=== PATIENT | male | born 1995 | race Caucasian/White ===

== ENCOUNTER 2021-11-16 10:38 | Emergency (ER) | payer OTHER ==
[2021-11-16 10:58] VITALS: RESP 18; TEMP 97.7
--- NOTE | 2021-11-16 11:56 | XR ---
EXAMINATION TYPE: XR chest 2V DATE OF EXAM: 11/16/2021 COMPARISON: NONE TECHNIQUE: PA and lateral views submitted. HISTORY: Cough FINDINGS: The lungs are clear and there is no pneumothorax, pleural effusion, or focal pneumonia. Heart size normal. No overt failure. IMPRESSION: 1. No acute process.
--- NOTE | 2021-11-16 12:38 | ED ---
General Adult HPI - General Chief complaint: Upper Respiratory Infection Stated complaint: chest congestion Time Seen by Provider: 11/16/21 12:08 Source: patient Mode of arrival: ambulatory Limitations: no limitations - History of Present Illness Initial comments: 26-year-old male presents to the emergency room for a chief complaint of cough. Patient has had a cough for about 2 weeks. He states it initially started and then improved but then came back and worsened. He has not had fevers. Minimal shortness of breath. He is congested as well and has had mild headaches.Patient has no other complaints at this time including shortness of breath, chest pain, abdominal pain, nausea or vomiting, or visual changes. - Related Data Previous Rx's Medication Instructions Recorded Azithromycin [Zithromax Z-pack (6 250 mg PO DIRECTED #6 tab 11/16/21 tabs)] Benzonatate [Tessalon Perles] 200 mg PO Q8H PRN #15 capsule 11/16/21 guaiFENesin [Mucinex] 600 mg PO Q12HR PRN #20 tab 11/16/21 Allergies Allergy/AdvReac Type Severity Reaction Status Date / Time No Known Allergies Allergy Verified 11/16/21 10:53 Review of Systems ROS Statement: Those systems with pertinent positive or pertinent negative responses have been documented in the HPI. ROS Other: All systems not noted in ROS Statement are negative. Past Medical History Past Medical History: No Reported History Past Surgical History: No Surgical Hx Reported Past Psychological History: No Psychological Hx Reported Smoking Status: Current every day smoker Past Alcohol Use History: None Reported Past Drug Use History: None Reported General Exam Limitations: no limitations General appearance: alert, in no apparent distress Head exam: Present: atraumatic Eye exam: Present: normal appearance, PERRL, EOMI. Absent: scleral icterus, conjunctival injection ENT exam: Present: normal exam, mucous membranes moist Neck exam: Present: normal inspection, full ROM. Absent: tenderness Respiratory exam: Present: normal lung sounds bilaterally. Absent: respiratory distress, wheezes Cardiovascular Exam: Present: regular rate, normal rhythm, normal heart sounds GI/Abdominal exam: Present: soft, normal bowel sounds. Absent: distended, tenderness Neurological exam: Present: alert Course Vital Signs 11/16/21 10:53 Temperature 97.7 F Pulse Rate 97 Respiratory 18 Rate Blood Pressure 118/63 O2 Sat by Pulse 98 Oximetry Medical Decision Making - Medical Decision Making Vitals are stable. Patient is well-appearing. Patient with the negative for COVID-19 a chest x-ray did not show pneumonia. However given symptoms improved and then worsened again we will cover for possible developing pneumonia. He will follow-up with his doctor. He will return here for any worsening symptoms. - Lab Data Lab Results 11/16/21 Range/Units 11:02 Coronavirus (PCR) Not Detected (Not Detectd) Disposition Clinical Impression: Cough Disposition: HOME SELF-CARE Condition: Good Instructions (If sedation given, give patient instructions): Upper Respiratory Infection (ED) Additional Instructions: Please follow-up with your doctor in one to 2 days. Return to the emergency room for any worsening symptoms. Prescriptions: guaiFENesin [Mucinex] 600 mg PO Q12HR PRN #20 tab PRN Reason: Congestion Benzonatate [Tessalon Perles] 200 mg PO Q8H PRN #15 capsule PRN Reason: Cough Azithromycin [Zithromax Z-pack (6 tabs)] 250 mg PO DIRECTED #6 tab Is patient prescribed a controlled substance at d/c from ED?: No Referrals: Nonstaff,Physician [Primary Care Provider] - 1-2 days Time of Disposition: 12:38
[2021-11-16] MEDS ORDERED: AZITHROMYCIN 500 MG TAB PO STA (12:43)
[2021-11-16 12:54] VITALS: BP 120/66; PULSE 90
== END 2021-11-16 12:55 | disposition home or self-care (01) ==
LOC: EC 10:38
DX: R05.9 Cough, unspecified (principal); R09.89 Other specified symptoms and signs involving the circulatory and respiratory systems; R51.9 Headache, unspecified; F17.200 Nicotine dependence, unspecified, uncomplicated; Z20.822 Contact with and (suspected) exposure to COVID-19
CPT/HCPCS: 71046; 87635; 99284

== ENCOUNTER 2021-11-24 22:31 | Inpatient (IN) | payer MEDICAID, OTHER ==
[2021-11-25] MEDS ORDERED: LORazepam 1 MG TAB PO STA (00:17)
[2021-11-25] MEDS ORDERED: QUEtiapine 100 MG TAB PO STA (01:14)
--- NOTE | 2021-11-25 01:14 | ED ---
Psych HPI - General Chief Complaint: Psychiatric Symptoms Stated Complaint: psych eval Time Seen by Provider: 11/24/21 23:28 Source: patient, RN notes reviewed Mode of arrival: ambulatory - History of Present Illness Initial Comments: Patient is a 26-year-old male that presents to the emergency department complaining of paranoia. Patient notes that he believes people are following him trying to kill him. He notes that people keep sneezing and a whistling around which he thinks is assigned at daycare after him. Patient notes that he does not take his medications as intended or prescribed. Patient notes he missed his last scheduled follow-up with his outpatient therapist. Patient notes that he also thinks that people are trying to kill the cars. Patient denied any chest pain shortness of breath headache nausea vomiting diarrhea constipation fever fatigue chills. - Related Data Previous Rx's Medication Instructions Recorded Azithromycin [Zithromax Z-pack (6 250 mg PO DIRECTED #6 tab 11/16/21 tabs)] Benzonatate [Tessalon Perles] 200 mg PO Q8H PRN #15 capsule 11/16/21 guaiFENesin [Mucinex] 600 mg PO Q12HR PRN #20 tab 11/16/21 Allergies Allergy/AdvReac Type Severity Reaction Status Date / Time No Known Allergies Allergy Verified 11/24/21 23:26 Review of Systems ROS Statement: Those systems with pertinent positive or pertinent negative responses have been documented in the HPI. ROS Other: All systems not noted in ROS Statement are negative. Past Medical History Past Medical History: No Reported History History of Any Multi-Drug Resistant Organisms: None Reported Past Surgical History: No Surgical Hx Reported Past Psychological History: Bipolar, Schizophrenia Smoking Status: Current every day smoker Past Alcohol Use History: None Reported Past Drug Use History: None Reported General Exam General appearance: alert, in no apparent distress Head exam: Present: atraumatic, normocephalic, normal inspection Eye exam: Present: normal appearance, PERRL, EOMI. Absent: scleral icterus, conjunctival injection, periorbital swelling ENT exam: Present: normal exam, mucous membranes moist Neck exam: Present: normal inspection Respiratory exam: Present: normal lung sounds bilaterally. Absent: respiratory distress, wheezes, rales, rhonchi, stridor Cardiovascular Exam: Present: regular rate, normal rhythm, normal heart sounds. Absent: systolic murmur, diastolic murmur, rubs, gallop, clicks Extremities exam: Present: normal inspection, full ROM, normal capillary refill. Absent: tenderness, pedal edema, joint swelling, calf tenderness Neurological exam: Present: alert, oriented X3 Psychiatric exam: Present: normal mood, flat affect. Absent: homicidal ideation, suicidal ideation Skin exam: Present: warm, dry, intact, normal color. Absent: rash Course Vital Signs 11/24/21 23:22 Temperature 97.1 F L Pulse Rate 107 H Respiratory 18 Rate Blood Pressure 159/77 O2 Sat by Pulse 97 Oximetry Medical Decision Making - Medical Decision Making 26-year-old male complaining of paranoia and delusions. Urine drug screen and alcohol breath test ordered. Patient is cleared for EPS evaluation, EPS notified. EPS of a wood patient and recommended 100 mg of Seroquel for the night. He also stated that patient will be admitted. Case discussed with Dr. Beltrán Disposition Clinical Impression: Psychosis, Paranoia Disposition: ADMITTED IP TO THIS HOSP Condition: Stable Is patient prescribed a controlled substance at d/c from ED?: No Referrals: None,Stated [Primary Care Provider] - 1-2 days Time of Disposition: 01:16
[2021-11-25 02:26] LABS: Amphetamine Screen,Urine Detected (NotDetected); Barbiturate Screen,Urine Not Detected (NotDetected); Benzodiazepines Screen,Urine Not Detected (NotDetected); Cocaine Screen,Urine Detected (NotDetected); Methadone Screen, Urine Not Detected (NotDetected); Opiate Screen,Urine Not Detected (NotDetected); Oxycodone Screen, Urine Not Detected (NotDetected); Phencyclidine Screen,Urine Not Detected (NotDetected); Tricyclic Antidepressant,Urine Detected (NotDetected); Urn Cannabinoid Scrn Not Detected (NotDetected)
--- NOTE | 2021-11-25 03:36 | P.PN ---
Progress Note - Text Progress Note Date: 11/25/21 notified of new consult , patient currently sleeping
--- NOTE | 2021-11-25 09:45 | P.HP ---
Psychiatric H&P - . H&P Date: 11/25/21 History & Physical: Allergies Allergy/AdvReac Type Severity Reaction Status Date / Time No Known Allergies Allergy Verified 11/24/21 23:26 Vital Signs Temp 98.7 F 11/25/21 03:11 Pulse 112 H 11/25/21 03:11 Resp 18 11/25/21 03:11 BP 111/67 11/25/21 03:11 Pulse Ox 95 11/25/21 03:11 Intake & Output 11/24/21 11/25/21 11/25/21 18:59 06:59 18:59 Weight 81.647 kg Laboratory Last Values Urine Opiates Screen Not Detected (NotDetected) 11/25/21 01:00 Ur Oxycodone Screen Not Detected (NotDetected) 11/25/21 01:00 Urine Methadone Screen Not Detected (NotDetected) 11/25/21 01:00 Ur Propoxyphene Screen Not Detected (NotDetected) 11/25/21 01:00 Ur Barbiturates Screen Not Detected (NotDetected) 11/25/21 01:00 U Tricyclic Antidepress Detected (NotDetected) H 11/25/21 01:00 Ur Phencyclidine Scrn Not Detected (NotDetected) 11/25/21 01:00 Ur Amphetamines Screen Detected (NotDetected) H 11/25/21 01:00 U Methamphetamines Scrn Detected (NotDetected) H 11/25/21 01:00 U Benzodiazepines Scrn Not Detected (NotDetected) 11/25/21 01:00 Urine Cocaine Screen Detected (NotDetected) H 11/25/21 01:00 U Marijuana (THC) Screen Not Detected (NotDetected) 11/25/21 01:00 Coronavirus (PCR) Not Detected (Not Detectd) 11/25/21 01:37 11/25/21 09:32 History of present illness: Buck Nazario is a 26-year-old male who presents to the ER stating that he was feeling very paranoid Patient had admitted to people trying to get him Patient also expressed some bizarre thoughts and looseness of associations like they should be getting rid of the cars and that the cars out to get them When seen today patient reports that he was having auditory and visual hallu cinations He states that the voices were bothering him and that they were overwhelming He admits to using drugs and alcohol He currently admits to using heroin cocaine and methamphetamine He states that he was on Seroquel in the past but has not been taking them He says that he is taking 100 mg at night Patient denies that he has had any adequate follow-up with the psychiatry in a long time Past history personal and social history Patient remains uninterested Patient turned around and went back to sleep and did not want to answer any further questions after some initial information as given above Patient admits that he has been homeless and has been staying at different places He also admits that he has been hospitalized several times in the past Patient denies that he has any suicidal or homicidal ideations or plans Substance abuse history: Patient admits to using heroin cocaine and methamphetamine on a regular basis Patient's current drug screen was positive for cocaine use and methamphetamine use Patient also tested positive for tricyclic antidepressant which may be a possible cross reaction with opiates Mental status examination: Reveals a young male who looks much older for his age Patient is easily arousable but not interested in this interview and wants to sleep and may be related to his recent substance use withdrawal symptoms with fatigue Affect remains flat Speech was clear, coherent and relevant Patient admits intermittent auditory and visual hallucinations but denies any command hallucinations Patient denies any suicidal or homicidal ideations Thinking is impoverished Formal and operational judgment are impaired Insight into his problem remains impaired Problem-solving ability is concrete Diagnostic impression: Adjustment disorder with mixed emotional features Psychotic disorder acute possibly drug related Polysubstance use disorder Cannabis use disorder unspecified Alcohol use disorder unspecified Methamphetamine use disorder unspecified "Opiate use disorder unspecified Cocaine use disorder unspecified Plan: 1 Patient is an appropriate candidate for inpatient psychiatric hospitalization and treatment 2 patient is only agreed to be restarted on Seroquel 100 mg at bedtime 3 patient's psychotic symptoms may be related to his substance use and further progress will depend on the clearing of the above drug related symptoms and reassessment for any other underlying mental disorder 4 patient will also parts been on the sethi activities and milieu treatment 5 approximate length of stay would be 3-5 days [facility]
[2021-11-25] MEDS ORDERED: LORazepam 2 MG/ML INJ IM PRN (20:32)
[2021-11-25] MEDS ORDERED: MAG HYDROX/AL HYDROX/SIMETH 30 ML CUP PO PRN (20:36)
[2021-11-25] MEDS ORDERED: MAGNESIUM HYDROXIDE 2,400 MG/10 ML CUP PO PRN (20:36)
[2021-11-25] MEDS: LORazepam 1 MG TAB PO PRN (20:50)
[2021-11-26] MEDS: NICOTINE 14MG/24HR PATCH TRANSDERM SCH (07:56)
[2021-11-26] MEDS: ACETAMINOPHEN TAB 325 MG TAB PO PRN ×2 (07:58→16:57)
[2021-11-26 08:31] LABS: Basophils % (A) 1 %; Eosinophils # (A) 0.2 k/uL (0-0.7); Eosinophils % (A) 3 %; HCT 44.4 % (39.0-53.0); HGB 14.5 gm/dL (13.0-17.5); Lymphocytes # (A) 1.6 k/uL (1.0-4.8); Lymphocytes % (A) 32 %; MCH 31.8 pg (25.0-35.0); MCHC 32.5 g/dL (31.0-37.0); MCV 97.6 fL (80.0-100.0); Mean Platelet Volume 7.4; Monocytes # (A) 0.4 k/uL (0-1.0); Monocytes % (A) 7 %; Neutrophils # (A) 2.7 k/uL (1.3-7.7); Neutrophils % (A) 54 %; Platelet Count 212 k/uL (150-450); RBC 4.55 m/uL (4.30-5.90); RDW 12.8 % (11.5-15.5); WBC 5.1 k/uL (3.8-10.6)
[2021-11-26 08:44] LABS: ALT 194 U/L (4-49); AST 142 U/L (17-59); African American GFR (CKD) >90 (>60 ml/min/1.73 sqM); Albumin 3.7 g/dL (3.5-5.0); Alkaline Phosphatase 58 U/L (38-126); Anion Gap 4 mmol/L; Blood Urea Nitrogen 18 mg/dL (9-20); Calcium 8.9 mg/dL (8.4-10.2); Carbon Dioxide 24 mmol/L (22-30); Chloride 110 mmol/L (98-107); Glucose 106 mg/dL (74-99); Non-African American GFR(CKD) >90 (>60 ml/min/1.73 sqM); Potassium 4.4 mmol/L (3.5-5.1); Sodium 138 mmol/L (137-145); Total Bilirubin 0.6 mg/dL (0.2-1.3); Total Protein 6.6 g/dL (6.3-8.2)
[2021-11-26] MEDS: LORazepam 1 MG TAB PO PRN (09:06)
--- NOTE | 2021-11-26 10:17 | P.PN ---
Progress Note - Text Progress Note Date: 11/26/21 Interval History: Patient was seen wandering the hallways and was directable and agreeable to speak with feature writer in the office. The patient is reporting that he is feeling well. He is currently not reporting any suicidal or homicidal ideation, intention, and/or plan. He is not reporting any auditory or visual hallucinations. He does admit that he recently relapsed into methamphetamine and cocaine use and that led him to be kicked out of his three-quarter house. He reports that he had no idea where he was to go and he was experiencing significant paranoia and hallucinations that led him to come to the hospital. She does report that he is currently gainfully employed. He is currently not endorsing any significant symptoms of psychosis at this time. He is not reporting any auditory or visual hallucinations or expressing any paranoid delusions. He has been adherent with his Seroquel and reports that it has been beneficial. He remains future oriented at this time, trying to problem solve where he would be going after this admission. Mental Status Exam: General Appearance: Patient appears to be stated age is alert, directable, and cooperative. Behavior: Patient is calmly seated without any agitated behavior. Psychomotor activity appears normal. Eye contact is appropriate. Speech: Patient's speech is fluent and nonpressured. Mood/Affect: Mood is improving mildly, affect is congruent and constricted. Suicidality/Homicidality: Patient denies having any suicidal or homicidal ideation intent or plan. Perceptions: Patient denies any visual hallucinations and denies any auditory hallucinations Though content/process: There is no evidence of any delusional thought content and thought process is linear and goal-directed. Memory and concentration: AOX3, grossly intact for the purposes of this session Judgment and insight: Improving mildly Vital Signs Temp 98.7 F 11/25/21 03:11 Pulse 112 H 11/25/21 03:11 Resp 18 11/25/21 03:11 BP 111/67 11/25/21 03:11 Pulse Ox 95 11/25/21 03:11 Laboratory Results - Last 24 Hours 11/26/21 11/26/21 07:32 07:32 WBC 5.1 RBC 4.55 Hgb 14.5 Hct 44.4 MCV 97.6 MCH 31.8 MCHC 32.5 RDW 12.8 Plt Count 212 MPV 7.4 Neutrophils % 54 Lymphocytes % 32 Monocytes % 7 Eosinophils % 3 Basophils % 1 Neutrophils # 2.7 Lymphocytes # 1.6 Monocytes # 0.4 Eosinophils # 0.2 Basophils # 0.0 Sodium 138 Potassium 4.4 Chloride 110 H Carbon Dioxide 24 Anion Gap 4 BUN 18 Creatinine 0.70 Est GFR (CKD-EPI)AfAm >90 Est GFR (CKD-EPI)NonAf >90 Glucose 106 H Calcium 8.9 Total Bilirubin 0.6 AST 142 H ALT 194 H Alkaline Phosphatase 58 Total Protein 6.6 Albumin 3.7 TSH 0.270 L Assessment Acute psychosis Polysubstance abuse Cannabis use disorder Methamphetamine use disorder Opiate use disorder Cocaine use disorder Alcohol use disorder Plan: -Patient continues to meet criteria for inpatient psychiatric admission for symptom stabilization and safety. Patient has signed adult voluntary form and medication consent and was placed in patient's chart. -Medications: Continue Seroquel 100 mg by mouth at bedtime for mood stabilization -When necessary Ativan and Haldol for agitation/aggression. -NRT - nicotine patch -SW on board for discharge planning. Encouraged the patient to participate in milieu.
[2021-11-26 17:00] VITALS: PULSE 116; RESP 15
[2021-11-26 17:21] LABS: Chol/HDL Ratio 2.46 Ratio; LDL Cholesterol,Calculated 65.7 mg/dL (0.0-131.0)
[2021-11-26] MEDS ORDERED: QUEtiapine 100 MG TAB PO SCH (21:00)
--- NOTE | 2021-11-27 01:21 | P.MDCNMH ---
History of Present Illness H&P Date: 11/27/21 Chief Complaint: medical eval 26 year old male with hepatitis C patient comes in for evaluation due to paranoid ideation. he describes feeling people are watching him and following him. he otherwise denies any medical concerns at this time , denies any fever, chills, pain , nausea or vomting, denies any cough, headache, chest pain or trouble breathing Patient denies drug abuse or or alcohol abuse Review of Systems Pertinent positives as noted in HPI. All other systems were reviewed and are negative Past Medical History Past Medical History: No Reported History History of Any Multi-Drug Resistant Organisms: None Reported Past Surgical History: No Surgical Hx Reported Past Psychological History: Bipolar, Schizophrenia Smoking Status: Current every day smoker Past Alcohol Use History: None Reported Past Drug Use History: None Reported - Past Family History Family Family Medical History: No Reported History Medications and Allergies Home Medications Medication Instructions Recorded Confirmed Type Azithromycin [Zithromax Z-pack (6 250 mg PO DIRECTED #6 tab 11/16/21 Rx tabs)] Benzonatate [Tessalon Perles] 200 mg PO Q8H PRN #15 capsule 11/16/21 Rx guaiFENesin [Mucinex] 600 mg PO Q12HR PRN #20 tab 11/16/21 Rx Allergies Allergy/AdvReac Type Severity Reaction Status Date / Time No Known Allergies Allergy Verified 11/24/21 23:26 Physical Exam Vitals: Vital Signs Temp Pulse Resp BP 11/26/21 16:59 97.5 F L 116 H 15 116/63 Constitutional: No acute distress, conversant, pleasant Eyes: Anicteric sclerae, moist conjunctiva, Pupils equal round reactive to light ENMT: NC/AT Oropharynx clear, no erythema, or exudates Neck: Supple no masses, or JVD No carotid bruits No thyromegaly Lungs: Clear to auscultation Clear to percussion Normal respiratory effort, no accessory muscle use Cardiovascular: Heart regular in rate and rhythm, No murmurs, gallops, or rubs No peripheral edema Abdominal: Soft Nontender, no guarding, rebound or rigidity Abdomen moving with respiration Normoactive bowel sounds No hepatomegaly, No splenomegaly No palpable mass No abdominal wall hernia noted Skin: Normal temperature, tone, texture, turgor No induration No subcutaneous nodules No rash, lesions No ulcers Extremities: No digital cyanosis No clubbing Pedal pulses intact and symmetrical Radial pulses intact and symmetrical No calf tenderness Psychiatric: Alert and oriented to person, place and time Neuro Muscles Strength 5/5 in all 4 extremities Sensation to light touch grossly present throughout Cranial nerves II-XII grossly intact No focal sensory deficits Lymphatics: no palpable cervical or supraclavicular , or inguinal lymph nodes Cranial Nerve Examination - Cranial Nerves Cranial Nerve II- Optic: Intact Cranial Nerve III- Oculomotor: Intact Cranial Nerve IV- Trochlear: Intact Cranial Nerve V- Trigeminal: Intact Cranial Nerve - Abducens: Intact Cranial Nerve VII- Facial: Intact Cranial Nerve VIII- Auditory: Intact Cranial Nerve IX- Glossopharyngeal: Intact Cranial Nerve X- Vagus: Intact Cranial Nerve XI- Accessory: Intact Cranial Nerve XII- Hypoglossal: Intact Results CBC & Chem 7: 11/26/21 07:32 11/26/21 07:32 Labs: Abnormal Lab Results - Last 24 Hours (Table) 11/26/21 Range/Units 07:32 Chloride 110 H (98-107) mmol/L Glucose 106 H (74-99) mg/dL AST 142 H (17-59) U/L ALT 194 H (4-49) U/L TSH 0.270 L (0.465-4.680) mIU/L Assessment and Plan Assessment: Paranoid ideation Management per psych Hepatitis C Follow-up enzymes Continue with outpatient follow-up with GI, per patient is trying to establish treatment Follow-up labs Thank you for allowing us to participate in the care of this patient. We will follow peripherally. Do not hesitate to contact us with questions. Someone can be reached from the [facility] hospitalist group at all hours of the day at [phone].
[2021-11-27] MEDS: NICOTINE 14MG/24HR PATCH TRANSDERM SCH (08:20)
[2021-11-27 08:22] VITALS: BP 127/82; TEMP 97.9
--- NOTE | 2021-11-27 11:16 | P.DS ---
Providers Date of admission: 11/25/21 01:59 Expected date of discharge: 11/27/21 Attending physician: Italo Lee MD Consults: 11/25/21 20:36 Consult Physician Routine Consulting Provider: Amanda Poe Consult Reason/Comments: h and p Do you want consulting provider notified?: Already Contacted Primary care physician: Stated None - Discharge Diagnosis(es) (1) Acute psychosis Current Visit: Yes Status: Acute Priority: High (2) Methamphetamine abuse Current Visit: Yes Status: Chronic Priority: Medium (3) Nicotine dependence Current Visit: Yes Status: Chronic Priority: Medium Hospital Course: Admission HPI: Initial psychiatric evaluation was completed by Dr. Nur on 11/25/2021 who wrote: "Buck Nazario is a 26-year-old male who presents to the ER stating that he was feeling very paranoid Patient had admitted to people trying to get him Patient also expressed some bizarre thoughts and looseness of associations like they should be getting rid of the cars and that the cars out to get them When seen today patient reports that he was having auditory and visual hallucinations He states that the voices were bothering him and that they were overwhelming He admits to using drugs and alcohol He currently admits to using heroin cocaine and methamphetamine He states that he was on Seroquel in the past but has not been taking them He says that he is taking 100 mg at night Patient denies that he has had any adequate follow-up with the psychiatry in a long time Past history personal and social history Patient remains uninterested Patient turned around and went back to sleep and did not want to answer any further questions after some initial information as given above Patient admits that he has been homeless and has been staying at different places He also admits that he has been hospitalized several times in the past Patient denies that he has any suicidal or homicidal ideations or plans Substance abuse history: Patient admits to using heroin cocaine and methamphetamine on a regular basis Patient's current drug screen was positive for cocaine use and methamphetamine use Patient also tested positive for tricyclic antidepressant which may be a possible cross reaction with opiates" Hospital course: Upon admission to the unit patient was initially noted to display a flat affect and indifference in the psychiatric interview. He did however, express auditory hallucinations, paranoia, and bizarre thoughts. This occurs in the context of substance abuse, in particular methamphetamines. The patient was started on Seroquel 100 mg at bedtime for management of acute psychosis. Patient was however directable and agreeable to commence treatment. Patient got along well with other patients on the unit and followed unit protocol. Patient was compliant with the medications and denied any side effects throughout hospital course. Patient spoke of his stressors and engaged in therapy both group and individual. Patient was also seen by medical team for history and physical exam. The following day, the patient had a significantly improved disposition as he expressed that his psychotic symptoms have abated and was agreeable to continue taking the Seroquel. He expresses significant improvement in regards to his mood and expressed future orientation stating that he would like to return to work and would possibly pursue going back to rehabilitation for his substance abuse in the near future. On the day of discharge, the patient is not endorsing any suicidal or homicidal ideation, intention, and/or plan. He is not reporting any auditory or visual hallucinations. He is not reporting any paranoia or other delusions. The patient has been adherent to his medication and is not endorsing any significant side effects at this time. The patient reports no access to firearms or other weapons. The patient was counseled at length on the importance of medication and the need for regular adherence as well as appropriate follow-up. The patient does have significant history of substance abuse and was counseled at length on abstaining from all substances including alcohol and marijuana. The patient is considering going to inpatient substance use rehabilitation in the near future. Mental status exam: General Appearance: Patient appears to be stated age is alert, pleasant, and cooperative. Patient is in no acute distress and has fair hygiene and grooming Behavior: Patient is calmly seated without any agitated behavior. Speech: Patient's speech is fluent and nonpressured. Mood/Affect: Patient reports their mood is "much better", affect is congruent and euthymic. Suicidality/Homicidality: Patient denies having any suicidal or homicidal ideation intent or plan. Perceptions: Patient denies any auditory or visual hallucinations. Though content/process: There is no evidence of any delusional thought content and thought process is linear and goal-directed. Patient is future oriented and expresses a desire to return to work. Memory and concentration: AOX3, grossly intact for the purposes of this session. Can spell "WORLD" backwards correctly. Judgment and insight: Improved with guarded prognosis Vital Signs Temp 97.9 F 11/27/21 08:21 Pulse 116 H 11/27/21 08:21 Resp 15 11/26/21 16:59 BP 127/82 11/27/21 08:21 Pulse Ox 95 11/25/21 03:11 Impression: Acute psychosis Polysubstance abuse Cannabis use disorder Methamphetamine use disorder Opiate use disorder Cocaine use disorder Alcohol use disorder Nicotine dependence Plan: -Continue with discharge today as patient has improved and stabilized psychiatrically and is not currently an imminent threat to himself and/or others. Patient will remain at chronically elevated risk for harm to self and/or others due to his substance abuse. -Continue medications: Seroquel 100 mg by mouth at bedtime for mood stabilization/psychosis Habitrol patches for nicotine cessation -Patient was counseled on the need for medication compliance and appropriate follow-up at mental health and also primary care for medical issues. Patient verbalized understanding and agreed. -Social work to arrange for and conduct family meeting to ensure safety upon discharge and answer any questions/concerns. Social work also to arrange for patients follow up appointments for psychiatric care along with follow up with primary care provider. -Patient counseled on abstaining from recreational drugs and marijuana and alcohol. Was informed/educated on the adverse effects on their physical and mental health. Patient verbally agreed and understood. -Patient was instructed to return to the hospital or seek immediate medical care if their psychiatric or medical symptoms do worsen or reoccur. -Psychoeducation and supportive therapy provided to patient. Risks and benefits of pharmacological treatment versus the risks and benefits of nontreatment weight and discussed. Informed consent discussion held. Common side effects of psychotropics discussed such as, but not limited to headache, GI disturbance, sexual dysfunction, movement disorders, sedation, and orthostatic hypotension. Life threatening and blackbox warnings of prescribed medications also discussed. Potential risks of operating a vehicle or heavy machinery discussed with patient at length. Advised on importance of compliance and a reliable and responsible manner. Patient advised to review FDA consumer labeling of all medications prior to taking. Patient verbalized understanding of potential risks, and agrees with current treatment plan. Patient advised to medically contact physician/emergency personnel if any acute changes in condition occur. Laboratory Results WBC 5.1 k/uL (3.8-10.6) 11/26/21 07:32 RBC 4.55 m/uL (4.30-5.90) 11/26/21 07:32 Hgb 14.5 gm/dL (13.0-17.5) 11/26/21 07:32 Hct 44.4 % (39.0-53.0) 11/26/21 07:32 MCV 97.6 fL (80.0-100.0) 11/26/21 07:32 MCH 31.8 pg (25.0-35.0) 11/26/21 07:32 MCHC 32.5 g/dL (31.0-37.0) 11/26/21 07:32 RDW 12.8 % (11.5-15.5) 11/26/21 07:32 Plt Count 212 k/uL (150-450) 11/26/21 07:32 MPV 7.4 11/26/21 07:32 Neutrophils % 54 % 11/26/21 07:32 Lymphocytes % 32 % 11/26/21 07:32 Monocytes % 7 % 11/26/21 07:32 Eosinophils % 3 % 11/26/21 07:32 Basophils % 1 % 11/26/21 07:32 Neutrophils # 2.7 k/uL (1.3-7.7) 11/26/21 07:32 Lymphocytes # 1.6 k/uL (1.0-4.8) 11/26/21 07:32 Monocytes # 0.4 k/uL (0-1.0) 11/26/21 07:32 Eosinophils # 0.2 k/uL (0-0.7) 11/26/21 07:32 Basophils # 0.0 k/uL (0-0.2) 11/26/21 07:32 Sodium 138 mmol/L (137-145) 11/26/21 07:32 Potassium 4.4 mmol/L (3.5-5.1) 11/26/21 07:32 Chloride 110 mmol/L (98-107) H 11/26/21 07:32 Carbon Dioxide 24 mmol/L (22-30) 11/26/21 07:32 Anion Gap 4 mmol/L 11/26/21 07:32 BUN 18 mg/dL (9-20) 11/26/21 07:32 Creatinine 0.70 mg/dL (0.66-1.25) 11/26/21 07:32 Est GFR (CKD-EPI)AfAm >90 (>60 ml/min/1.73 sqM) 11/26/21 07:32 Est GFR (CKD-EPI)NonAf >90 (>60 ml/min/1.73 sqM) 11/26/21 07:32 Glucose 106 mg/dL (74-99) H 11/26/21 07:[address] Glu mg/dL 103 11/26/21 07:32 Hemoglobin A1c 5.2 % (4.0-6.0) 11/26/21 07:32 Calcium 8.9 mg/dL (8.4-10.2) 11/26/21 07:32 Total Bilirubin 0.6 mg/dL (0.2-1.3) 11/26/21 07:32 AST 142 U/L (17-59) H 11/26/21 07:32 ALT 194 U/L (4-49) H 11/26/21 07:32 Alkaline Phosphatase 58 U/L (38-126) 11/26/21 07:32 Total Protein 6.6 g/dL (6.3-8.2) 11/26/21 07:32 Albumin 3.7 g/dL (3.5-5.0) 11/26/21 07:32 Triglycerides 57.50 mg/dL (0.00-149.00) 11/26/21 07:32 Cholesterol 130.00 mg/dL (0.00-200.00) 11/26/21 07:32 LDL Cholesterol, Calc 65.7 mg/dL (0.0-131.0) 11/26/21 07:32 VLDL Cholesterol, Calc 11.50 mg/dL (5.00-40.00) 11/26/21 07:32 HDL Cholesterol 52.80 mg/dL (40.00-60.00) 11/26/21 07:32 Cholesterol/HDL Ratio 2.46 Ratio 11/26/21 07:32 TSH 0.270 mIU/L (0.465-4.680) L 11/26/21 07:32 Free T4 0.96 ng/dL (0.78-2.19) 11/26/21 07:32 Urine Opiates Screen Not Detected (NotDetected) 11/25/21 01:00 Ur Oxycodone Screen Not Detected (NotDetected) 11/25/21 01:00 Urine Methadone Screen Not Detected (NotDetected) 11/25/21 01:00 Ur Propoxyphene Screen Not Detected (NotDetected) 11/25/21 01:00 Ur Barbiturates Screen Not Detected (NotDetected) 11/25/21 01:00 U Tricyclic Antidepress Detected (NotDetected) H 11/25/21 01:00 Ur Phencyclidine Scrn Not Detected (NotDetected) 11/25/21 01:00 Ur Amphetamines Screen Detected (NotDetected) H 11/25/21 01:00 U Methamphetamines Scrn Detected (NotDetected) H 11/25/21 01:00 U Benzodiazepines Scrn Not Detected (NotDetected) 11/25/21 01:00 Urine Cocaine Screen Detected (NotDetected) H 11/25/21 01:00 U Marijuana (THC) Screen Not Detected (NotDetected) 11/25/21 01:00 Coronavirus (PCR) Not Detected (Not Detectd) 11/25/21 01:37 Allergies Allergy/AdvReac Type Severity Reaction Status Date / Time No Known Allergies Allergy Verified 11/24/21 23:26 Patient Condition at Discharge: Stable Plan - Discharge Summary Discharge Rx Participant: No New Discharge Prescriptions: New Nicotine 14Mg/24Hr Patch [Habitrol] 1 patch TRANSDERM DAILY 30 Days patch QUEtiapine [SEROquel] 100 mg PO HS 30 Days tab Continue Azithromycin [Zithromax Z-pack (6 tabs)] 250 mg PO DIRECTED #6 tab Discontinued guaiFENesin [Mucinex] 600 mg PO Q12HR PRN #20 tab PRN Reason: Congestion Benzonatate [Tessalon Perles] 200 mg PO Q8H PRN #15 capsule PRN Reason: Cough Discharge Medication List Azithromycin [Zithromax Z-pack (6 tabs)] 250 mg PO DIRECTED #6 tab 11/16/21 [Rx] Nicotine 14Mg/24Hr Patch [Habitrol] 1 patch TRANSDERM DAILY 30 Days patch 11/27/21 [Rx] QUEtiapine [SEROquel] 100 mg PO HS 30 Days tab 11/27/21 [Rx] Follow up Appointment(s)/Referral(s): None,Stated [Primary Care Provider] - 1-2 days Patient Instructions/Handouts: Brief Psychotic Disorder (DC), Polysubstance Abuse (ED) Activity/Diet/Wound Care/Special Instructions: Activity and diet as tolerated. Avoid the use of street drugs and alcohol. Take all medications as prescribed. When you are in need of refills on your medications please contact your medical provider and/or outpatient psychiatrist to have this done. Please go to scheduled outpatient appointment for aftercare treatment. If symptoms return or become worse, call the crisis line at and/or go to the nearest emergency room for evaluation Discharge Disposition: HOME SELF-CARE
== END 2021-11-27 13:30 | disposition home or self-care (01) | DRG 885 ==
LOC: EC 22:31 → 3MHU 11-25 01:59 → UNDODISIN 11-26 13:06
PROVIDERS: ADMIT Psychiatry & Neurology Psychiatry; ATTEND Psychiatry & Neurology Psychiatry
DX: F23 Brief psychotic disorder (principal); F10.10 Alcohol abuse, uncomplicated; F11.10 Opioid abuse, uncomplicated; F12.10 Cannabis abuse, uncomplicated; F14.10 Cocaine abuse, uncomplicated; F15.10 Other stimulant abuse, uncomplicated; F17.200 Nicotine dependence, unspecified, uncomplicated; F20.9 Schizophrenia, unspecified; F31.9 Bipolar disorder, unspecified; F43.23 Adjustment disorder with mixed anxiety and depressed mood; Z59.00 Homelessness unspecified; Z79.899 Other long term (current) drug therapy; Z20.822 Contact with and (suspected) exposure to COVID-19
CPT/HCPCS: 80053; 80061; 80306; 82075; 83036; 84439; 84443; 85025; 87635

== ENCOUNTER → 2022-03-12 | Outpatient (CLI) | payer OTHER ==
--- NOTE | 2022-03-12 08:49 | US ---
EXAMINATION TYPE: US abdomen complete DATE OF EXAM: 03/12/2022 COMPARISON: NONE CLINICAL HISTORY: B18.2. Hepatitis C w/o coma, chronic EXAM MEASUREMENTS: Liver Length: 13.8 cm Gallbladder Wall: 0.2 cm CBD: 0.5 cm Spleen: 13.7 cm Right Kidney: 12.3 x 4.3 x 6.4 cm Left Kidney: 11.4 x 6.0 x 6.1 cm Pancreas: wnl Liver: wnl Gallbladder: No stones seen Evidence for sonographic Young's sign: No CBD: wnl Spleen: wnl Right Kidney: No hydronephrosis or masses seen Left Kidney: No hydronephrosis or masses seen Upper IVC: wnl Abd Aorta: wnl The visualized liver is fairly homogeneous in echotexture without worrisome focal mass or ductal dila tation. No surrounding ascites. The intrahepatic portion of the IVC and visualized abdominal aorta a re within normal limits. There is no evidence of cholelithiasis. Common bile duct is unremarkable. The visualized portions of the pancreas are homogenous. The spleen is unremarkable. Kidneys are sy mmetric and free of hydronephrosis. No renal lesions are seen on images saved. IMPRESSION: No focal intrahepatic mass or intrahepatic ductal dilatation.
== END | disposition home or self-care (01) ==
LOC: RADUSWWP 06:45
PROVIDERS: ATTEND Family Medicine
DX: B18.2 Chronic viral hepatitis C (principal)
CPT/HCPCS: 76700

== ENCOUNTER 2024-03-10 09:53 | Emergency (ER) | payer OTHER ==
[2024-03-10 10:19] VITALS: RESP 18; TEMP 98
[2024-03-10] MEDS: SODIUM CHLORIDE 0.9% 1,000 ML IV ONE (10:44)
[2024-03-10 10:53] LABS: Basophils % (A) 0 %; Eosinophils # (A) 0.1 k/uL (0-0.7); Eosinophils % (A) 1 %; HCT 44.4 % (39.0-53.0); HGB 14.8 gm/dL (13.0-17.5); Lymphocytes # (A) 0.7 k/uL (1.0-4.8); Lymphocytes % (A) 11 %; MCH 31.5 pg (25.0-35.0); MCHC 33.3 g/dL (31.0-37.0); MCV 94.7 fL (80.0-100.0); Mean Platelet Volume 7.2; Monocytes # (A) 0.4 k/uL (0-1.0); Monocytes % (A) 6 %; Neutrophils # (A) 5.6 k/uL (1.3-7.7); Neutrophils % (A) 81 %; Platelet Count 185 k/uL (150-450); RBC 4.69 m/uL (4.30-5.90); RDW 12.5 % (11.5-15.5); WBC 6.9 k/uL (3.8-10.6)
[2024-03-10 11:02] LABS: ALT 20 U/L (4-49); AST 23 U/L (17-59); African American GFR (CKD) >90 (>60 ml/min/1.73 sqM); Albumin 4.3 g/dL (3.5-5.0); Alkaline Phosphatase 59 U/L (38-126); Anion Gap 9 mmol/L; Blood Urea Nitrogen 18 mg/dL (9-20); Carbon Dioxide 24 mmol/L (22-30); Chloride 108 mmol/L (98-107); Glucose 120 mg/dL (74-99); Magnesium 1.9 mg/dL (1.6-2.3); Non-African American GFR(CKD) >90 (>60 ml/min/1.73 sqM); Potassium 3.5 mmol/L (3.5-5.1); Sodium 141 mmol/L (137-145); Total Bilirubin 0.4 mg/dL (0.2-1.3); Total Protein 6.8 g/dL (6.3-8.2)
--- NOTE | 2024-03-10 11:11 | ED ---
Fall HPI - General Chief Complaint: Fall Stated Complaint: Withdrawal Time Seen by Provider: 03/10/24 09:56 Source: patient, EMS, RN notes reviewed Mode of arrival: EMS Limitations: no limitations - History of Present Illness Initial Comments: 28-year-old male presents emergency department via EMS from sober house for possible overdose. Patient does admit around 2 AM he took some OxyContin and Adderall. Patient states that he relapsed he has been sober for 6 months. Patient has no other complaints he denies any head injury no headache dizziness blurred vision. Patient denies any fevers or chills denies abdominal pain no chest pain no palpitations he states he has no complaints other than he did use drugs last night. - Related Data Previous Rx's Medication Instructions Recorded QUEtiapine [SEROquel] 100 mg PO HS 30 Days tab 11/27/21 Allergies Allergy/AdvReac Type Severity Reaction Status Date / Time No Known Allergies Allergy Verified 07/07/22 17:27 Review of Systems ROS Statement: Those systems with pertinent positive or pertinent negative responses have been documented in the HPI. ROS Other: All systems not noted in ROS Statement are negative. Past Medical History Past Medical History: No Reported History History of Any Multi-Drug Resistant Organisms: None Reported Past Surgical History: No Surgical Hx Reported Past Psychological History: Bipolar, Schizophrenia Smoking Status: Current every day smoker Past Alcohol Use History: Occasional Past Drug Use History: Methamphetamine - Past Family History Family Family Medical History: No Reported History General Exam Limitations: no limitations General appearance: alert, in no apparent distress Head exam: Present: atraumatic, normocephalic, normal inspection Eye exam: Present: normal appearance, PERRL, EOMI. Absent: scleral icterus, conjunctival injection, periorbital swelling ENT exam: Present: normal exam, mucous membranes moist Neck exam: Present: normal inspection, full ROM. Absent: tenderness, mening ismus, lymphadenopathy Respiratory exam: Present: normal lung sounds bilaterally. Absent: respiratory distress, wheezes, rales, rhonchi, stridor Cardiovascular Exam: Present: regular rate, normal rhythm, normal heart sounds. Absent: systolic murmur, diastolic murmur, rubs, gallop, clicks GI/Abdominal exam: Present: soft, normal bowel sounds. Absent: distended, tenderness, guarding, rebound, rigid Extremities exam: Present: normal inspection, full ROM, normal capillary refill. Absent: tenderness, pedal edema, joint swelling, calf tenderness Back exam: Present: normal inspection Neurological exam: Present: alert, oriented X3, CN II-XII intact, reflexes normal. Absent: motor sensory deficit Skin exam: Present: warm, dry, intact, normal color. Absent: rash Course Vital Signs 03/10/24 03/10/24 03/10/24 09:55 10:19 11:04 Temperature 98 F Pulse Rate 140 H 83 88 Respiratory 18 18 Rate Blood Pressure 142/99 O2 Sat by Pulse 95 Oximetry Medical Decision Making - Medical Decision Making Was pt. sent in by a medical professional or institution (, KINDRA, HEAT TREATING OPERATOR, urgent care, hospital, or custodial...) When possible be specific @ -No Did you speak to anyone other than the patient for history (EMS, parent, family, police, friend...)? What history was obtained from this source @ -No Did you review nursing and triage notes (agree or disagree)? Why? @ -I reviewed and agree with nursing and triage notes Were old charts reviewed (outside hosp., previous admission, EMS record, old EKG, old radiological studies, urgent care reports/EKG's, custodial records)? Report findings @ -No old charts were reviewed Differential Diagnosis (chest pain, altered mental status, abdominal pain women, abdominal pain men, vaginal bleeding, weakness, fever, dyspnea, syncope, headache, dizziness, GI bleed, back pain, seizure, CVA, palpatations, mental health, musculoskeletal)? @ -Drug ingestion, drug relapse, fall, EKG interpreted by me (3pts min.). @ -As above X-rays interpreted by me (1pt min.). @ -None done CT interpreted by me (1pt min.). @ -None done U/S interpreted by me (1pt. min.). @ -None done What testing was considered but not performed or refused? (CT, X-rays, U/S, labs)? Why? @ -None What meds were considered but not given or refused? Why? @ -None Did you discuss the management of the patient with other professionals (professionals i.e. KINDRA Stephens, HEAT TREATING OPERATOR, lab, RT, psych nurse, manager social work, model home sales greeter, teacher, chief security officer, housing case manager)? Give summary @ -No Was smoking cessation discussed for >3mins.? @ -No Was critical care preformed (if so, how long)? @ -No Were there social determinants of health that impacted care today? How? (Homelessness, low income, unemployed, alcoholism, drug addiction, transportation, low edu. Level, literacy, decrease access to med. care, detention, rehab)? @ -No Was there de-escalation of care discussed even if they declined (Discuss DNR or withdrawal of care, Hospice)? DNR status @ -No What co-morbidities impacted this encounter? (DM, HTN, Smoking, COPD, CAD, Cancer, CVA, ARF, Chemo, Hep., AIDS, mental health diagnosis, sleep apnea, morbid obesity)? @ -Drug abuse Was patient admitted / discharged? Hospital course, mention meds given and route, prescriptions, significant lab abnormalities, going to OR and other pertinent info. @ -Discharge patient is well-appearing with no complaints patient to have normal basic labs EKG. Patient relapsed using Adderall and OxyContin today patient is discharged and advised to follow-up rehab Undiagnosed new problem with uncertain prognosis? @ -No Drug Therapy requiring intensive monitoring for toxicity (Heparin, Nitro, Insulin, Cardizem)? @ -No Were any procedures done? @ -No Diagnosis/symptom? @ -Drug use Acute, or Chronic, or Acute on Chronic? @Acute Uncomplicated (without systemic symptoms) or Complicated (systemic symptoms)? @ -uncomplicated Side effects of treatment? @ -No Exacerbation, Progression, or Severe Exacerbation? @ -No Poses a threat to life or bodily function? How? (Chest pain, [place], [place], pneumonia, PE, COPD, DKA, ARF, appy, cholecystitis, CVA, Diverticulitis, Homicidal, S uicidal, threat to staff... and all critical care pts) @ -No - Lab Data Result diagrams: 03/10/24 10:43 03/10/24 10:43 Lab Results 03/10/24 03/10/24 Range/Units 10:43 10:43 WBC 6.9 (3.8-10.6) k/uL RBC 4.69 (4.30-5.90) m/uL Hgb 14.8 (13.0-17.5) gm/dL Hct 44.4 (39.0-53.0) % MCV 94.7 (80.0-100.0) fL MCH 31.5 (25.0-35.0) pg MCHC 33.3 (31.0-37.0) g/dL RDW 12.5 (11.5-15.5) % Plt Count 185 (150-450) k/uL MPV 7.2 Neutrophils % 81 % Lymphocytes % 11 % Monocytes % 6 % Eosinophils % 1 % Basophils % 0 % Neutrophils # 5.6 (1.3-7.7) k/uL Lymphocytes # 0.7 L (1.0-4.8) k/uL Monocytes # 0.4 (0-1.0) k/uL Eosinophils # 0.1 (0-0.7) k/uL Basophils # 0.0 (0-0.2) k/uL Sodium 141 (137-145) mmol/L Potassium 3.5 (3.5-5.1) mmol/L Chloride 108 H (98-107) mmol/L Carbon Dioxide 24 (22-30) mmol/L Anion Gap 9 mmol/L BUN 18 (9-20) mg/dL Creatinine 0.75 (0.66-1.25) mg/dL Est GFR (CKD-EPI)AfAm >90 (>60 ml/min/1.73 sqM) Est GFR (CKD-EPI)NonAf >90 (>60 ml/min/1.73 sqM) Glucose 120 H (74-99) mg/dL Calcium 9.0 (8.4-10.2) mg/dL Magnesium 1.9 (1.6-2.3) mg/dL Total Bilirubin 0.4 (0.2-1.3) mg/dL AST 23 (17-59) U/L ALT 20 (4-49) U/L Alkaline Phosphatase 59 (38-126) U/L Total Protein 6.8 (6.3-8.2) g/dL Albumin 4.3 (3.5-5.0) g/dL - EKG Data -: EKG Interpreted by [facility] EKG Comments: EKG performed at 10: 10 sinus rhythm rate of 83 ND 148 QRS 121 QT/QTc 336/376 Disposition Clinical Impression: Drug use Disposition: HOME SELF-CARE Condition: Stable Additional Instructions: Please return to the Emergency Department if symptoms worsen or any other concerns. Is patient prescribed a controlled substance at d/c from ED?: No Referrals: None,Stated [Primary Care Provider] - 1-2 days Time of Disposition: 11:33
[2024-03-10 12:27] VITALS: BP 162/90; PULSE 82
== END 2024-03-10 12:14 | disposition home or self-care (01) ==
LOC: EC 09:53
DX: F19.10 Other psychoactive substance abuse, uncomplicated (principal); F17.200 Nicotine dependence, unspecified, uncomplicated
CPT/HCPCS: 36415; 80053; 83735; 85025; 93005; 96360; 99284

== ENCOUNTER 2025-02-23 20:55 | Inpatient (IN) | payer MEDICAID, OTHER ==
[2025-02-23 23:46] LABS: Influenza A Not Detected (Not Detectd); Influenza B Not Detected (Not Detectd); RSV Not Detected (Not Detectd)
--- NOTE | 2025-02-23 23:58 | ED ---
General Adult HPI - General Chief complaint: Psychiatric Symptoms Stated complaint: mental issues Time Seen by Provider: 02/23/25 22:27 Source: patient Mode of arrival: ambulatory Limitations: no limitations - History of Present Illness Initial comments: 29-year-old male presenting with chief complaint of suicidal ideation. Patient reports that he suffers from severe paranoid delusions. He constantly feels like people are watching him and trying to hurt him. He states that it consumes his life to the point where it is difficult to leave his house. States that he is having thoughts of wanting to kill himself by using a gun. He does not have any plans to harm other people. He denies any physical complaints today. He did drink half a pint today. He denies any drug use today. - Related Data Previous Rx's Medication Instructions Recorded QUEtiapine [SEROquel] 100 mg PO HS 30 Days tab 11/27/21 Allergies Allergy/AdvReac Type Severity Reaction Status Date / Time No Known Allergies Allergy Verified 02/23/25 21:03 Review of Systems ROS Statement: Those systems with pertinent positive or pertinent negative responses have been documented in the HPI. ROS Other: All systems not noted in ROS Statement are negative. Past Medical History Past Medical History: No Reported History History of Any Multi-Drug Resistant Organisms: None Reported Past Surgical History: No Surgical Hx Reported Past Psychological History: Bipolar, Schizophrenia Smoking Status: Current every day smoker, Vaper Past Alcohol Use History: Daily, Occasional Past Drug Use History: Methamphetamine - Past Family History Family Family Medical History: No Reported History General Exam Limitations: no limitations General appearance: alert, in no apparent distress Head exam: Present: atraumatic, normocephalic, normal inspection Eye exam: Present: normal appearance, EOMI Neck exam: Present: normal inspection. Absent: meningismus Respiratory exam: Absent: respiratory distress Cardiovascular Exam: Present: regular rate Neurological exam: Present: alert, oriented X3 Psychiatric exam: Present: normal affect, normal mood, suicidal ideation. Absent: homicidal ideation Skin exam: Present: warm, dry, normal color Course Vital Signs 02/23/25 20:57 Temperature 97.9 F Pulse Rate 83 Respiratory 16 Rate Blood Pressure 134/87 O2 Sat by Pulse 98 Oximetry Medical Decision Making - Medical Decision Making Was pt. sent in by a medical professional or institution (, PA, INSPECTING AND TESTING LEAD HAND, urgent care, hospital, or assisted...) When possible be specific @ -[No] Did you speak to anyone other than the patient for history (EMS, parent, family, police, friend...)? What history was obtained from this source @ -[No] Did you review nursing and triage notes (agree or disagree)? Why? @ -[I reviewed and agree with nursing and triage notes] Were old charts reviewed (outside hosp., previous admission, EMS record, old EKG, old radiological studies, urgent care reports/EKG's, assisted records)? Report findings @ -[No old charts were reviewed] Differential Diagnosis (chest pain, altered mental status, abdominal pain women, abdominal pain men, vaginal bleeding, weakness, fever, dyspnea, syncope, headache, dizziness, GI bleed, back pain, seizure, CVA, palpatations, mental health, musculoskeletal)? @ -Differential Mental Health Depression, anxiety, bipolar, psychosis, schizophrenia, borderline personality, situational depression, adjustment disorder, behavioral disorder, brain tumor, m alingering, substance abuse, encephalopathy, medication reaction, dementia, hypothyroidism, degenerative neurologic disorder, lupus.... This is not meant to be all-inclusive list EKG interpreted by me (3pts min.). @ -[As above] X-rays interpreted by me (1pt min.). @ -[None done] CT interpreted by me (1pt min.). @ -[None done] U/S interpreted by me (1pt. min.). @ -[None done] What testing was considered but not performed or refused? (CT, X-rays, U/S, labs)? Why? @ -[None] What meds were considered but not given or refused? Why? @ -[None] Did you discuss the management of the patient with other professionals (professionals i.e. , PA, INS[employer]ING AND TESTING [employer], lab, RT, psych nurse, foster care social worker, military lawyer, te acher, chief informatics officer, case filler)? Give summary @ -[No] Was smoking cessation discussed for >3mins.? @ -[No] Was critical care preformed (if so, how long)? @ -[No] Were there social determinants of health that impacted care today? How? (Homelessness, low income, unemployed, alcoholism, drug addiction, transportation, low edu. Level, literacy, decrease access to med. care, long-term, rehab)? @ -[No] Was there de-escalation of care discussed even if they declined (Discuss DNR or withdrawal of care, Hospice)? DNR status @ -[No] What co-morbidities impacted this encounter? (DM, HTN, Smoking, COPD, CAD, Cancer, CVA, ARF, Chemo, Hep., AIDS, mental health diagnosis, sleep apnea, morbid obesity)? @ -[None] Was patient admitted / discharged? Hospital course, mention meds given and route, prescriptions, significant lab abnormalities, going to OR and other pertinent info. @ -29-year-old male presenting with chief complaint of suicidal ideation. History and physical examination are conducted. Patient is medically cleared once he is sober in an hour. He is awaiting evaluation by EPS. Patient signed out to my attending Dr. Sanchez Undiagnosed new problem with uncertain prognosis? @ -[No] Drug Therapy requiring intensive monitoring for toxicity (Heparin, Nitro, Insulin, Cardizem)? @ -[No] Were any procedures done? @ -[No] Diagnosis/symptom? @ -[default] Acute, or Chronic, or Acute on Chronic? @ -[default] Uncomplicated (without systemic symptoms) or Complicated (systemic symptoms)? @ -[default] Side effects of treatment? @ -[No] Exacerbation, Progression, or Severe Exacerbation? @ -[No] Poses a threat to life or bodily function? How? (Chest pain, USA, MA, pneumonia, PE, COPD, DKA, ARF, appy, cholecystitis, CVA, Diverticulitis, Homicidal, Suicidal, threat to staff... and all critical care pts) @ -[No] - Lab Data Result diagrams: 02/24/25 11:23 02/24/25 11:23 Lab Results 02/23/25 02/24/25 Range/Units 23:02 00:25 Urine Opiates Screen Not Detected (NotDetected) Ur Oxycodone Screen Not Detected (NotDetected) Urine Methadone Screen Not Detected (NotDetected) Ur Barbiturates Screen Not Detected (NotDetected) U Tricyclic Antidepress Not Detected (NotDetected) Ur Phencyclidine Scrn Not Detected (NotDetected) Ur Amphetamines Screen Detected H (NotDetected) U Methamphetamines Scrn Detected H (NotDetected) U Benzodiazepines Scrn Not Detected (NotDetected) Urine Cocaine Screen Not Detected (NotDetected) U Marijuana (THC) Screen Not Detected (NotDetected) Influenza Type A (PCR) Not Detected (Not Detectd) Influenza Type B (PCR) Not Detected (Not Detectd) RSV (PCR) Not Detected (Not Detectd) SARS-CoV-2 (PCR) Not Detected (Not Detectd) Disposition Clinical Impression: Psychosis, Paranoia Disposition: TRANSFER TO PSYCH HOSP/UNIT Condition: Stable
[2025-02-24 01:33] LABS: Amphetamine Screen,Urine Detected (NotDetected); Barbiturate Screen,Urine Not Detected (NotDetected); Benzodiazepines Screen,Urine Not Detected (NotDetected); Cocaine Screen,Urine Not Detected (NotDetected); Methadone Screen, Urine Not Detected (NotDetected); Opiate Screen,Urine Not Detected (NotDetected); Oxycodone Screen, Urine Not Detected (NotDetected); Phencyclidine Screen,Urine Not Detected (NotDetected); Tricyclic Antidepressant,Urine Not Detected (NotDetected); Urn Cannabinoid Scrn Not Detected (NotDetected)
[2025-02-24] MEDS ORDERED: MAGNESIUM HYDROXIDE 2,400 MG/30 ML CUP PO PRN (01:50)
[2025-02-24] MEDS ORDERED: MAG HYDROX/AL HYDROX/SIMETH 355 ML BOTTLE PO PRN (01:50)
[2025-02-24] MEDS ORDERED: traZODone HCL 50 MG TAB PO PRN (01:50)
[2025-02-24] MEDS ORDERED: haloperidoL 5 MG TAB PO PRN (01:50)
[2025-02-24] MEDS ORDERED: HALOPERIDOL LACTATE 5 MG/ML 1 ML VIAL IM PRN (01:50)
[2025-02-24] MEDS ORDERED: ACETAMINOPHEN TAB 325 MG TAB PO PRN (01:50)
[2025-02-24] MEDS ORDERED: LORazepam 2 MG/ML INJ IM PRN (01:50)
[2025-02-24] MEDS: LORazepam 1 MG TAB PO PRN (02:25)
--- NOTE | 2025-02-24 03:55 | P.CONS ---
History of Present Illness - Reason for Consult Consult date: 02/24/25 medical co-management - Chief Complaint paranoia - History of Present Illness Bcuk is a 29-year-old male with past medical history of methamphetamine use Patient presents to the hospital today complaining of a 5-year history of paranoid delusions. The patient denies any prior psychiatric hospitalizations and denies being on any prior psych tropic medications. He reports that he was not able to take the paranoid delusions any further and I decided to seek medical attention. The patient denies any prior medication prescription use. He reports that he does not frequently drink alcohol however yesterday he drank half a pint to 1 pint alcohol. He reports that he works at [employer] and his occupation as passing out orange juice. He denies any tobaco use. He reports that he had re lapsed yesterday from his meth fentanyl use. He reports that he was clean for approximate 6 months however still had his paranoid delusions and therefore had relapse yesterday and he had smoked 1 g of methamphetamine. Lab work obtained in the ER reveals urine drug screen positive for methamphetamine most recent vital signs reveal a temperature of 97.8 heart rate 77 respiratory rate 18 blood pressure 110/66 he is 96% room air Review of Systems Pertinent positives and negatives as discussed in HPI, a complete review of systems was performed and all other systems are negative. Past Medical History Past Medical History: No Reported History History of Any Multi-Drug Resistant Organisms: None Reported Past Surgical History: No Surgical Hx Reported Past Anesthesia/Blood Transfusion Reactions: No Reported Reaction Smoking Status: Current every day smoker, Vaper - Past Family History Family Family Medical History: No Reported History Medications and Allergies Home Medications Medication Instructions Recorded Confirmed Type QUEtiapine [SEROquel] 100 mg PO HS 30 Days tab 11/27/21 03/27/22 Rx Allergies Allergy/AdvReac Type Severity Reaction Status Date / Time No Known Allergies Allergy Verified 02/23/25 21:03 Physical Exam Vitals: Vital Signs Temp Pulse Pulse Resp BP BP Pulse Ox 02/24/25 02:34 97.8 F 77 18 110/66 96 02/23/25 20:57 97.9 F 83 16 134/87 98 Intake and Output 02/23/25 02/23/25 02/24/25 14:59 22:59 06:59 Other: Weight 79.379 kg 77.734 kg General: non toxic, no distress, male appears stated age Derm: warm, dry Head: atraumatic, normocephalic, symmetric Eyes: EOMI, no lid lag, ENT: Nose and ears atraumatic, no thrush, no pharyngeal erythema Neck: No thyromegaly, no cervical lymphadenopathy, trachea midline, supple Mouth: no lip lesion, mucus membranes moist Cardiovascular: S1S2 reg, no murmur Lungs: clear to ascultation bilateral Abdominal: soft, nontender to palpation Ext: no gross muscle atrophy, Neuro: moving all extremeties spontanously Psych:calm and cooperative Results Labs: Abnormal Lab Results - Last 24 Hours (Table) 02/24/25 Range/Units 00:25 Ur Amphetamines Screen Detected H (NotDetected) U Methamphetamines Scrn Detected H (NotDetected) Assessment and Plan Assessment: #) paranoid delusions. reports 5 year history of paranoid delusions with no prior psychatric history or psychitriac hospitalizations. primary management as per psychiatry team. ??home med include seroquel 100 mg hs #) suicidal ideation. endorses had thoughts of suididal ideation on 02/23. denies access to firearms #) Methamphtamine use. endorses smokes methamphetamine. was clean for 6 months however relapse. cessation recommended #) ETOH use without history of etoh use disorder. reports drank 1/2 pint to 1 pint daily. endorses no strong history of etoh use. check etoh level CBC, cmp, a1c, lipid profile and tsh pending thank you for allowing us to take care of this patient. please do not hesitate to contact sound physicians if any questions arise. Time with Patient: Greater than 30
[2025-02-24] MEDS: NICOTINE 14MG/24HR PATCH TRANSDERM SCH (08:26)
[2025-02-24 11:51] LABS: Basophils # (A) 0.05 10*3/uL (0.00-0.10); Basophils % (A) 0.9 %; Eosinophils # (A) 0.19 10*3/uL (0.04-0.35); Eosinophils % (A) 3.5 %; HCT 42.8 % (39.6-50.0); Lymphocytes # (A) 2.13 10*3/uL (0.90-5.00); Lymphocytes % (A) 38.9 %; MCH 32.1 pg (27.0-32.0); MCV 91.5 fL (80.0-97.0); Mean Platelet Volume 9.5 fL (9.5-12.2); Monocytes # (A) 0.41 10*3/uL (0.20-1.00); Monocytes % (A) 7.5 %; Neutrophils # (A) 2.69 10*3/uL (1.80-7.70); Platelet Count 247 10*3/uL (140-440); RBC 4.68 10*6/uL (4.40-5.60); RDW 12.4 % (11.5-14.5); WBC 5.48 10*3/uL (4.50-10.00)
[2025-02-24 12:12] LABS: ALT 21 U/L (4-49); AST 24 U/L (17-59); African American GFR (CKD) >90 (>60 ml/min/1.73 sqM); Albumin 4.1 g/dL (3.5-5.0); Alkaline Phosphatase 51 U/L (38-126); Anion Gap 5 mmol/L; Blood Urea Nitrogen 14 mg/dL (9-20); Calcium 9.3 mg/dL (8.4-10.2); Carbon Dioxide 31 mmol/L (22-30); Chloride 103 mmol/L (98-107); Glucose 94 mg/dL (74-99); Non-African American GFR(CKD) >90 (>60 ml/min/1.73 sqM); Potassium 4.3 mmol/L (3.5-5.1); Sodium 139 mmol/L (137-145); Total Bilirubin 0.5 mg/dL (0.2-1.3); Total Protein 6.6 g/dL (6.3-8.2)
--- NOTE | 2025-02-24 13:56 | P.HP ---
Psychiatric H&P - . H&P Date: 02/24/25 History & Physical: Allergies Allergy/AdvReac Type Severity Reaction Status Date / Time No Known Allergies Allergy Verified 02/23/25 21:03 Vital Signs Temp 97.8 F 02/24/25 08:25 Pulse 95 02/24/25 08:25 Resp 18 02/24/25 08:25 BP 116/74 02/24/25 08:25 Pulse Ox 99 02/24/25 08:25 FiO2 Intake & Output 02/23/25 02/24/25 02/24/25 18:59 06:59 18:59 Weight 77.734 kg Laboratory Last Values WBC 5.48 10*3/uL (4.50-10.00) 02/24/25 11:23 RBC 4.68 10*6/uL (4.40-5.60) 02/24/25 11:23 Hgb 15.0 g/dL (13.0-17.0) 02/24/25 11:23 Hct 42.8 % (39.6-50.0) 02/24/25 11:23 MCV 91.5 fL (80.0-97.0) 02/24/25 11:23 MCH 32.1 pg (27.0-32.0) H 02/24/25 11:23 MCHC 35.0 g/dL (32.0-37.0) 02/24/25 11:23 Plt Count 247 10*3/uL (140-440) 02/24/25 11:23 MPV 9.5 fL (9.5-12.2) 02/24/25 11:23 Immature Gran % (Auto) 0.2 % 02/24/25 11:23 Neutrophils % 49.0 % 02/24/25 11:23 Lymphocytes % 38.9 % 02/24/25 11:23 Monocytes % 7.5 % 02/24/25 11:23 Eosinophils % 3.5 % 02/24/25 11:23 Basophils % 0.9 % 02/24/25 11:23 Immature Gran # 0.01 10*3/uL (0.00-0.04) 02/24/25 11:23 Neutrophils # 2.69 10*3/uL (1.80-7.70) 02/24/25 11:23 Lymphocytes # 2.13 10*3/uL (0.90-5.00) 02/24/25 11:23 Monocytes # 0.41 10*3/uL (0.20-1.00) 02/24/25 11:23 Eosinophils # 0.19 10*3/uL (0.04-0.35) 02/24/25 11:23 Basophils # 0.05 10*3/uL (0.00-0.10) 02/24/25 11:23 Sodium 139 mmol/L (137-145) 02/24/25 11:23 Potassium 4.3 mmol/L (3.5-5.1) 02/24/25 11:23 Chloride 103 mmol/L (98-107) 02/24/25 11:23 Carbon Dioxide 31 mmol/L (22-30) H 02/24/25 11:23 Anion Gap 5 mmol/L 02/24/25 11:23 BUN 14 mg/dL (9-20) 02/24/25 11:23 Creatinine 0.73 mg/dL (0.66-1.25) 02/24/25 11:23 Est GFR (CKD-EPI)AfAm >90 (>60 ml/min/1.73 sqM) 02/24/25 11:23 Est GFR (CKD-EPI)NonAf >90 (>60 ml/min/1.73 sqM) 02/24/25 11:23 Glucose 94 mg/dL (74-99) 02/24/25 11:23 Calcium 9.3 mg/dL (8.4-10.2) 02/24/25 11:23 Total Bilirubin 0.5 mg/dL (0.2-1.3) 02/24/25 11:23 AST 24 U/L (17-59) 02/24/25 11:23 ALT 21 U/L (4-49) 02/24/25 11:23 Alkaline Phosphatase 51 U/L (38-126) 02/24/25 11:23 Total Protein 6.6 g/dL (6.3-8.2) 02/24/25 11:23 Albumin 4.1 g/dL (3.5-5.0) 02/24/25 11:23 TSH 0.875 mIU/L (0.465-4.680) 02/24/25 11:23 Urine Opiates Screen Not Detected (NotDetected) 02/24/25 00:25 Ur Oxycodone Screen Not Detected (NotDetected) 02/24/25 00:25 Urine Methadone Screen Not Detected (NotDetected) 02/24/25 00:25 Ur Barbiturates Screen Not Detected (NotDetected) 02/24/25 00:25 U Tricyclic Antidepress Not Detected (NotDetected) 02/24/25 00:25 Ur Phencyclidine Scrn Not Detected (NotDetected) 02/24/25 00:25 Ur Amphetamines Screen Detected (NotDetected) H 02/24/25 00:25 U Methamphetamines Scrn Detected (NotDetected) H 02/24/25 00:25 U Benzodiazepines Scrn Not Detected (NotDetected) 02/24/25 00:25 Urine Cocaine Screen Not Detected (NotDetected) 02/24/25 00:25 U Marijuana (THC) Screen Not Detected (NotDetected) 02/24/25 00:25 Influenza Type A (PCR) Not Detected (Not Detectd) 02/23/25 23:02 Influenza Type B (PCR) Not Detected (Not Detectd) 02/23/25 23:02 RSV (PCR) Not Detected (Not Detectd) 02/23/25 23:02 SARS-CoV-2 (PCR) Not Detected (Not Detectd) 02/23/25 23:02 02/24/25 13:14 IDENTIFYING DATA: Patient is a 29-year-old male , currently lives with a roommate in an apartment, he has no kids he works at [employer]. HPI: Patient presented to the hospital yesterday and was evaluated by eps nurse and as per note "Patient brought self to the ER with complaints of SI with plans to walk into traffic, overdose or shoot himself in the head. "I'm fuing over it, I'm tired of living. I want to shoot myself in the face. I'm fuprince serious. Patient has history of polysubstance use and was evasive with fiction writer regarding it. Patient states he has overdosed 20-30 times on heroin but has been clean of heroin for a "few years". Patient states he has been sober from alcohol for 6 months until tonight when he drank a pint. Patient states his friends and mom have told him to come in to be evaluated. Patient recently reopened with [facility] 02/09/25 but has not saw the counselor or prescriber yet. Per [facility] pt home meds are trileptal 300 mg once in am and twice HS and vistaril 50 mg po q6 PRN. Patient states he has not been taking the medications because "that's too weak, it doesn't even help". Patient states he has a [facility] apmnt on Friday but "that's too far away I won't make it until then". Pt states he has a history of schizophrenia and has been trying to self medicate over the years. Patient states "people are following me, they want to poison me- they are all working for the same agency, even some of the people working here are in on it". Pt endorses trouble falling and staying sleep, poor appetite, poor judgment. Patient states his mom and two friends are his support system". Patient was seen today and agreeable to speak to fiction writer in the office. Patient claims that he has been talking to his sponsors and also his support team and claims that he has been clean for several months however claims that he is still dealing with paranoid thoughts. States that this has been going on for quite some time and states that he believes people might be following him, talking about him. He also believes that new lites in his workplace could be cameras spying on him. He states that he wants treatment he believes that this is a big problem for him and interfering with his life. Claims that he is having some depression anxiety at this time. Claims that his sleep and appetite are fair. Patient denies any suicidal or homicidal ideations intent or plan. At this time patient denies any auditory or visual hallucinations. Patient denies any flight of ideas racing thoughts and increased in goal directed behavior. Patient admits to using methamphetamine, claims that he relapsed in the past few days. States that he also has been drinking alcohol for the past day or so. He denies any history of withdrawals or DTs denies any withdrawal seizures not reporting any withdrawal symptoms at this time. PAST PSYCHIATRIC HISTORY: Patient has a history of polysubstance abuse, acute psychosis. Patient was previously on Seroquel 100 mg nightly however has been off medications for several months. Patient was last psychiatrically admitted to the mental health unit in November 2021. Patient denies any psychiatric outpatient follow-up. Claims that he overdosed on pills 2 years ago. Past Medical History: No Reported History History of Any Multi-Drug Resistant Organisms: None Reported Past Surgical History: No Surgical Hx Reported Past Psychological History: Bipolar, Schizophrenia Smoking Status: Current every day smoker, Vaper Past Alcohol Use History: Daily, Occasional Past Drug Use History: Methamphetamine ALLERGIES: as per EMR CHEMICAL DEPENDENCY HISTORY: as per HPI FAMILY PSYCHIATRIC/SUBSTANCE USE HISTORY: Claims that his father and grandfather had issues with alcohol schizophrenia and possibly bipolar SOCIAL HISTORY: Patient was born and raised in [facility]. Claims that he completed his GED, claims that he went to shelter for possession of cocaine in 2019. States that he currently lives with a roommate in an apartment, he has no kids, works at [employer].. MENTAL STATUS EXAM: General Appearance: Patient appears to be tall, short hair, stated age is alert, directable, and attempts to cooperate. Patient appears to have poor hygiene and grooming. Behavior: Patient is seated without any agitated behavior. Attempts to cooperate Speech: Patient's speech is fluent and nonpressured. Mood/Affect: Patient reports their mood is depressed and mildly anxious, affect is congruent and constricted. Suicidality/Homicidality: Patient denies having any homicidal ideation intent or plan. Denies any suicidal ideations intent or plan Perceptions: Patient denies any visual hallucinations and denies any auditory hallucinations Though content/process: There is no evidence of any delusional thought content and thought process is linear and goal-directed. Endorsing paranoia. Memory and concentration: AOX3, grossly intact for the purposes of this session. Can spell "WORLD" backwards Judgment and insight: Poor STRENGTHS/WEAKNESSES: strength is that patient is resilient. Weakness is that patient has poor judgment and is impulsive and has history of polysubstance abuse INTELLECT: Average IMPRESSIONS: Psychosis unspecified Methamphetamine abuse Alcohol use disorder PLAN: -Patient is admitted under voluntary status to MHU for stabilization of psychiatric symptoms and safety. Patient has signed adult voluntary form and has signed medication consent and is placed in patient's chart. -Medications : Invega p.o. 3 mg nightly for psychosis/mood stabilization, Zoloft 25 mg daily for mood/anxiety. Trazodone 50 mg nightly as needed for insomnia. -Ativan and Haldol PRN for agitation/aggression -CIWA protocol with Ativan PRN for ETOH withdrawal. -Patient was counselled on substance abuse and desired to cut back on use. Will offer patient subtance use rehab -Patient was informed of the risks, benefits and side effects of the medications and patient verbally consented to taking the medications. Patient signed med consent form and was placed in chart. Patient was offered medication information and accepted it -Internal Medicine consult to perform medical evaluation and physical. -NRT -not needed as patient does not smoke -SW on board for discharge planning. Encourage patient to participate in groups to work on coping skills. 02/24/25 13:15 02/24/25 13:50
[2025-02-24] MEDS: SERTRALINE 25 MG TAB PO SCH (14:26)
[2025-02-24] MEDS: PALIPERIDONE 3 MG TAB.ER.24 PO SCH (20:25)
[2025-02-25 03:06] LABS: Appearance,Urine Clear (Clear); Bilirubin,Urine Negative (Negative); Blood,Urine Negative (Negative); Color,Urine Yellow; Glucose,Urine (UA) Negative (Negative); Ketones,Urine Negative (Negative); Leukocyte Esterase,Urine Negative (Negative); Nitrite,Urine Negative (Negative); PH, Urine 5.5 (5.0-8.0); Protein,Urine Trace (Negative); Specific Gravity,Urine 1.026 (1.001-1.035); Urobilinogen,Urine <2.0 mg/dL (<2.0)
[2025-02-25 08:23] LABS: LDL Cholesterol,Calculated 58.1 mg/dL (0.0-131.0)
--- NOTE | 2025-02-25 11:24 | P.PN ---
Progress Note - Text Progress Note Date: 02/25/25 Interval History: Patient was seen today laying in his bed. He was agreeable to speak to literary writer in the office today. He claims that he is doing a bit better today, appears to have an improvement in his affect. States that he slept about 10 hours last night. Claims that he has been mainly keeping himself in his room, not reporting any side effects at this time. Has been eating well. Not going to groups. At this time he is denying any suicidal homicidal ideations intent or plan denying any auditory visual hallucinations. Claims that he feels "safer" here on the unit, claims that his paranoia has been improving mildly since yesterday. MENTAL STATUS EXAM: General Appearance: Patient appears to be tall, short hair, stated age is alert, directable, and attempts to cooperate. Patient appears to have poor hygiene and grooming. Behavior: Patient is seated without any agitated behavior. Attempts to cooperate Speech: Patient's speech is fluent and nonpressured. Mood/Affect: Patient reports their mood is improving mildly, affect is congruent and improving Suicidality/Homicidality: Patient denies having any homicidal ideation intent or plan. Denies any suicidal ideations intent or plan Perceptions: Patient denies any visual hallucinations and denies any auditory hallucinations Though content/process: There is no evidence of any delusional thought content and thought process is linear and goal-directed. Endorsing paranoia, improving Memory and concentration: AOX3, grossly intact for the purposes of this session Judgment and insight: Poor, mproving mildly IMPRESSIONS: Psychosis unspecified Methamphetamine abuse Alcohol use disorder PLAN: -Patient is admitted under voluntary status to MHU for stabilization of psychiatric symptoms and safety. Patient has signed adult voluntary form and has signed medication consent and is placed in patient's chart. -Medications : Invega p.o. 3 mg nightly for psychosis/mood stabilization, increase Zoloft 50 mg qhs for mood/anxiety. Trazodone 50 mg nightly as needed for insomnia. -Ativan and Haldol PRN for agitation/aggression -CIWA protocol with Ativan PRN for ETOH withdrawal. -NRT -not needed as patient does not smoke -SW on board for discharge planning. Encourage patient to participate in groups to work on coping skills. patient is refusing rehab at this time. likely discharge next week if patient is improving.
[2025-02-25] MEDS: SERTRALINE 25 MG TAB PO ONE (21:36)
--- NOTE | 2025-02-26 10:37 | P.PN ---
Progress Note - Text Progress Note Date: 02/26/25 Dictation was produced using [employer] dictation software. Please excuse any grammatical, word or spelling errors. Interval history: Patient was seen in the hallway and was directable and agreeable to speak with the machine sign writer in the office for psychiatric follow-up. The patient states that he is feeling better today, reported that his mood is "better," reported that he is happy with his decision to come to the hospital since he has been dealing with mental illness, and substance use for quit sometime, states that he is still working at [employer]. States that depression and anxiety are at the low side, states that racing thoughts are less intense. States that he slept well last night, and he has been eating his meals. He denied any current SI/HI or self harm. Denied any current AVH. States that he is getting along well with everyone in the unit, reported feeling safe, and less paranoid. States that he is compliant with his medication, denied any side effects, denied any muscle stiffness, rigidity, abnormal movement, or drooling. Mental status exam: General Appearance: Patient appears to be tall, short hair, stated age is alert, directable, and attempts to cooperate. Patient appears to have fair hygiene and grooming. Behavior: Patient is seated without any agitated behavior. Attempts to cooperate Speech: Patient's speech is fluent and nonpressured. Mood/Affect: Patient reports their mood is " better," improving mildly, affect is congruent and improving Suicidality/Homicidality: Patient denies having any homicidal ideation intent or plan. Denies any suicidal ideations intent or plan Perceptions: Patient denies any visual hallucinations and denies any auditory hallucinations Though content/process: There is no evidence of any delusional thought content and thought process is linear and goal-directed. Endorsing paranoia, improving Memory and concentration: AOX3, grossly intact for the purposes of this session Judgment and insight: Poor, mproving mildly IMPRESSIONS: Psychosis unspecified Methamphetamine abuse Alcohol use disorder Assessment/Plan: Continue with current diagnosis. Patient continues to meet criteria for inpatient psychiatric admission for symptom stabilization and safety. Patient will be maintained on current psychotropic medication regimen w hich include Invega 3 mg p.o. at bedtime, Zoloft 50 mg p.o. daily, and trazodone 50 mg p.o. at bedtime, patient has been compliant with his medication, denied any current side effects, denied any muscle stiffness, rigidity, abnormal movement, or drooling. Patient's diet has been improving, reported less intense racing thoughts since he started the medication and admitted to improvement in paranoia. monitor for medication compliance and for any psychotropic medication side effects. Will continue to monitor ongoing response to treatment. Encouraged participation in milieu. Education was provided into substance use.
[2025-02-26] MEDS: SERTRALINE 50 MG TAB PO SCH (20:38)
[2025-02-27] MEDS: IBUPROFEN 600 MG TAB PO PRN (08:17)
--- NOTE | 2025-02-27 10:22 | P.PN ---
Progress Note - Text Progress Note Date: 02/27/25 Dictation was produced using [employer] dictation software. Please excuse any grammatical, word or spelling errors. Interval history: Patient was seen in his room, and was directable and agreeable to speak with the commercial underwriter in the office for psychiatric follow-up. The patient states that he is feeling good today, sleepy and tired. States that he was able to sleep well last night, denied any nightmares. Admitted to good appetite. States depression and anxiety to be at the moderate side, he rated both at 4/10, he states that his father will have an open heart surgery tomorrow and that is making him anxious. States that he is planning to go with him to help him out after discharge. He denied any current SI/HI or self harm. Denied any AVH, or paranoia, reported that he can think clear with the medications. States that he has been taking his medications and he denied any side effects, denied any muscle stiffness, rigidity, abnormal movement, or drooling. Reported that he feels a little bit tired however he is adjusting to the unit. Reported that he feels safe while in the unit and getting along well with everyone. Reported that he attended the morning group. Mental status exam: General Appearance: Patient appears to be tall, short hair, black conrad, wearing reading glasses, stated age, is alert, directable, and attempts to cooperate. Patient appears to have fair hygiene and grooming. Behavior: Patient is seated without any agitated behavior. Attempts to cooperate Speech: Patient's speech is fluent and nonpressured. Mood/Affect: Patient reports their mood is "good" improving mildly, affect is congruent and improving Suicidality/Homicidality: Patient denies having any homicidal ideation intent or plan. Denies any suicidal ideations intent or plan Perceptions: Patient denies any visual hallucinations and denies any auditory hallucinations Though content/process: There is no evidence of any delusional thought content and thought process is linear and goal-directed. Endorsing paranoia, improving Memory and concentration: AOX3, grossly intact for the purposes of this session Judgment and insight: Poor, mproving mildly IMPRESSIONS: Psychosis unspecified Methamphetamine abuse Alcohol use disorder Assessment/Plan: Continue with current diagnosis. Patient continues to meet criteria for inpatient psychiatric admission for symptom stabilization and safety. Patient will be maintained on current psychotropic medication regimen which include Invega 3 mg p.o. at bedtime, Zoloft 50 mg p.o. daily, and trazodone 50 mg p.o. at bedtime, patient has been compliant with his medication, denied any current side effects, denied any muscle stiffness, rigidity, abnormal movement, or drooling. Patient's diet has been improving, reported less intense racing thoughts since he started the medication and admitted to improvement in paranoia. Patient was educated on substance use, encouraged to follow-up with her therapist and psychiatrist after discharge and refrain from using substances. Monitor for medication compliance and for any psychotropic medication side effects. Will continue to monitor ongoing response to treatment. Encouraged participation in milieu. Education was provided into substance use.
--- NOTE | 2025-02-28 10:59 | P.PN ---
Progress Note - Text Progress Note Date: 02/28/25 Interval History: Patient was seen today taking part in morning group. He was agreeable to speak to adjusto writer operator in the office today. He claims that he is doing a bit better today. States that he feels that the paranoia has been improving, does not feel that people are after him at this time. Not reporting any side effects or problems with his medications. Claims that over the weekend he did go to some groups, appears to be a bit more future oriented today. Improvement in affect today. Has been eating well. Claims that he slept fairly throughout the night. At this time he is denying any suicidal homicidal ideations intent or plan denying any auditory visual hallucinations. MENTAL STATUS EXAM: General Appearance: Patient appears to be tall, short hair, stated age is alert, directable, and attempts to cooperate. Patient appears to have improving hygiene and grooming. Behavior: Patient is seated without any agitated behavior. Attempts to cooperate Speech: Patient's speech is fluent and nonpressured. Mood/Affect: Patient reports their mood is improving mildly, affect is congruent and improving Suicidality/Homicidality: Patient denies having any homicidal ideation intent or plan. Denies any suicidal ideations intent or plan Perceptions: Patient denies any visual hallucinations and denies any auditory hallucinations Though content/process: There is no evidence of any delusional thought content and thought process is linear and goal-directed. Memory and concentration: AOX3, grossly intact for the purposes of this session Judgment and insight: improving mildly IMPRESSIONS: Psychosis unspecified Methamphetamine abuse Alcohol use disorder PLAN: -Patient is admitted under voluntary status to [facility] for stabilization of psychiatric symptoms and safety. Patient has signed adult voluntary form and has signed medication consent and is placed in patient's chart. -Medications : Invega p.o. 3 mg nightly for psychosis/mood stabilization, Zoloft 50 mg qhs for mood/anxiety. Trazodone 50 mg nightly as needed for insomnia. -Ativan and Haldol PRN for agitation/aggression -NRT -not needed as patient does not smoke -SW on board for discharge planning. Encourage patient to participate in groups to work on coping skills. patient is refusing rehab at this time. likely disch arge tomorrow if patient is improving.
[2025-02-28 20:43] VITALS: RESP 18
[2025-03-01 10:00] VITALS: BP 166/81; PULSE 125; TEMP 98.6
--- NOTE | 2025-03-01 11:05 | P.DS ---
Providers Date of admission: 02/24/25 01:40 Expected date of discharge: 03/01/25 Attending physician: Bill Leroy MD Consults: 02/24/25 01:50 Consult Physician Routine Consulting Provider: Marito Gar Consult Reason/Comments: medical H&P Do you want consulting provider notified?: Yes Primary care physician: Stated None - Discharge Diagnosis(es) (1) Unspecified psychosis Current Visit: Yes Status: Acute Priority: High (2) Methamphetamine abuse Current Visit: Yes Status: Acute Priority: High (3) Alcohol use disorder Current Visit: Yes Status: Acute Priority: Medium Hospital Course: Admission HPI: Admission note was completed by check writer salesperson "Patient is a 29-year-old male , currently lives with a roommate in an apartment, he has no kids he works at [employer] Patient presented to the hospital yesterday and was evaluated by eps nurse and as per note "Patient brought self to the ER with complaints of SI with plans to walk into traffic, overdose or shoot himself in the head. "I'm fuing over it, I'm tired of living. I want to shoot myself in the face. I'm fuprince serious. Patient has history of polysubstance use and was evasive with check writer salesperson regarding it. Patient states he has overdosed 20-30 times on heroin but has been clean of heroin for a "few years". Patient states he has been sober from alcohol for 6 months until tonight when he drank a pint. Patient states his friends and mom have told him to come in to be evaluated. Patient recently reopened with [facility] 02/09/25 but has not saw the counselor or prescriber yet. Per [facility] pt home meds are trileptal 300 mg once in am and twice HS and vistaril 50 mg po q6 PRN. Patient states he has not been taking the medications because "that's too weak, it doesn't even help". Patient states he has a [facility] apmnt on Friday but "that's too far away I won't make it until then". Pt states he has a history of schizophrenia and has been trying to self medicate over the years. Patient states "people are following me, they want to poison me- they are all working for the same agency, even some of the people working here are in on it". Pt endorses trouble falling and staying sleep, poor appetite, poor judgment. Patient states his mom and two friends are his support system". Patient was seen today and agreeable to speak to check writer salesperson in the office. Patient claims that he has been talking to his sponsors and also his support team and claims that he has been clean for several months however claims that he is still dealing with paranoid thoughts. States that this has been going on for quite some time and states that he believes people might be following him, talking about him. He also believes that new lites in his workplace could be cameras spying on him. He states that he wants treatment he believes that this is a big problem for him and interfering with his life. Claims that he is having some depression anxiety at this time. Claims that his sleep and appetite are fair. Patient denies any suicidal or homicidal ideations intent or plan. At this time patient denies any auditory or visual hallucinations. Patient denies any flight of ideas racing thoughts and increased in goal directed behavior. Patient admits to using methamphetamine, claims that he relapsed in the past few days. States that he also has been drinking alcohol for the past day or so. He denies any history of withdrawals or DTs denies any withdrawal seizures not reporting any withdrawal symptoms at this time." Hospital course: Upon admission to the unit patient was directable and agreeable to commence treatment and signed adult voluntary form. Patient was initially paranoid however with time and treatment patient got along well with other patients on the unit and followed unit protocol. Patient was compliant with the medications and denied any side effects throughout hospital course. Patient was started on invega 3 mg qhs for psychosis/mood stabilization, zoloft 50 mg qhs for mood/anxiety. Patient spoke of his stressors however did not participate much in group/activity therapy and mainly kept to themselves during hospitalization. Patient was also seen by medical team for history and physical exam. Throughout the course of the hospitalization patient gradually improved with regards to mood, anxiety, psychosis/paranoia, sleep and became more future oriented with improved insight and judgment. On the day of discharge patient denied any suicidal or homicidal ideations intent or plan denied any auditory or visual hallucinations. Patient endorsed wanting to live for their health and family and future. The patient denied any access to guns or weapons. Patient denied any paranoia and did not endorse any delusions. Patient does have a significant history of substance abuse and was counseled on abstaining from all substances including alcohol and marijuana. Patient was offered however declined inpatient substance-abuse rehab. Patient was also counseled on the medications and need for regular compliance and was encouraged to follow-up with their outpatient appointment for mental health and also for primary care. Sw to assist patient with dc planning today as he will be returning home. patient rescinded [facility] and did not allow Sw to call others for safe dc planning. Mental status exam: General Appearance: Patient appears to be tall, short hair, stated age is alert, pleasant, and cooperative. Patient is in no acute distress and has improved hygiene and grooming Behavior: Patient is calmly seated without any agitated behavior. Speech: Patient's speech is fluent and nonpressured. Mood/Affect: Patient reports their mood is "better", affect is congruent and euthymic. Suicidality/Homicidality: Patient denies having any suicidal or homicidal ideation intent or plan. Perceptions: Patient denies any auditory or visual hallucinations. Though content/process: There is no evidence of any delusional thought content and thought process is linear and goal-directed. More future oriented Memory and concentration: AOX3, grossly intact for the purposes of this session. Can spell "WORLD" backwards correctly. Judgment and insight: improved with guarded prognosis Impression: Unspecified psychosis Methamphetamine abuse Alcohol use disorder Plan: -Continue with discharge today as patient has improved and stabilized psychiatrically and is not currently an imminent threat to themself and/or others. Patient will remain at chronically elevated risk for harm to self and/or others due to their impulsivity and substance abuse. -Continue medications: Invega p.o. 3 mg nightly for psychosis/mood stabilization, Zoloft 50 mg nightly for mood/anxiety. -Patient was counseled on the need for medication compliance and appropriate follow-up at mental health and also primary care for medical issues. Patient verbalized understanding and agreed. -Social work to help coordinate patients discharge today. also to ensure safe home environment that guns/weapons are either removed from the home or locked away. Social work also to arrange for patients follow up appointments with [facility] for psychiatric care along with follow up with primary care provider. -Patient counseled on abstaining from recreational drugs and marijuana and alcohol. Was informed/educated on the adverse effects on their physical and mental health. Patient verbally agreed and understood. Patient was offered substance abuse treatment however declined at this time. -Patient was instructed to return to the hospital or seek immediate medical care if their psychiatric or medical symptoms do worsen or reoccur. Allergies Allergy/AdvReac Type Severity Reaction Status Date / Time No Known Allergies Allergy Verified 02/23/25 21:03 Laboratory Results WBC 5.48 10*3/uL (4.50-10.00) 02/24/25 11:23 RBC 4.68 10*6/uL (4.40-5.60) 02/24/25 11:23 Hgb 15.0 g/dL (13.0-17.0) 02/24/25 11:23 Hct 42.8 % (39.6-50.0) 02/24/25 11:23 MCV 91.5 fL (80.0-97.0) 02/24/25 11:23 MCH 32.1 pg (27.0-32.0) H 02/24/25 11:23 MCHC 35.0 g/dL (32.0-37.0) 02/24/25 11:23 Plt Count 247 10*3/uL (140-440) 02/24/25 11:23 MPV 9.5 fL (9.5-12.2) 02/24/25 11:23 Immature Gran % (Auto) 0.2 % 02/24/25 11:23 Neutrophils % 49.0 % 02/24/25 11:23 Lymphocytes % 38.9 % 02/24/25 11:23 Monocytes % 7.5 % 02/24/25 11:23 Eosinophils % 3.5 % 02/24/25 11:23 Basophils % 0.9 % 02/24/25 11:23 Immature Gran # 0.01 10*3/uL (0.00-0.04) 02/24/25 11:23 Neutrophils # 2.69 10*3/uL (1.80-7.70) 02/24/25 11:23 Lymphocytes # 2.13 10*3/uL (0.90-5.00) 02/24/25 11:23 Monocytes # 0.41 10*3/uL (0.20-1.00) 02/24/25 11:23 Eosinophils # 0.19 10*3/uL (0.04-0.35) 02/24/25 11:23 Basophils # 0.05 10*3/uL (0.00-0.10) 02/24/25 11:23 Sodium 139 mmol/L (137-145) 02/24/25 11:23 Potassium 4.3 mmol/L (3.5-5.1) 02/24/25 11:23 Chloride 103 mmol/L (98-107) 02/24/25 11:23 Carbon Dioxide 31 mmol/L (22-30) H 02/24/25 11:23 Anion Gap 5 mmol/L 02/24/25 11:23 BUN 14 mg/dL (9-20) 02/24/25 11:23 Creatinine 0.73 mg/dL (0.66-1.25) 02/24/25 11:23 Est GFR (CKD-EPI)AfAm >90 (>60 ml/min/1.73 sqM) 02/24/25 11:23 Est GFR (CKD-EPI)NonAf >90 (>60 ml/min/1.73 sqM) 02/24/25 11:23 Glucose 94 mg/dL (74-99) 02/24/25 11:[address] Glu mg/dL 108 mg/dL 02/24/25 11:23 Hemoglobin A1c 5.4 % (<=6.0) 02/24/25 11:23 Calcium 9.3 mg/dL (8.4-10.2) 02/24/25 11:23 Total Bilirubin 0.5 mg/dL (0.2-1.3) 02/24/25 11:23 AST 24 U/L (17-59) 02/24/25 11:23 ALT 21 U/L (4-49) 02/24/25 11:23 Alkaline Phosphatase 51 U/L (38-126) 02/24/25 11:23 Total Protein 6.6 g/dL (6.3-8.2) 02/24/25 11:23 Albumin 4.1 g/dL (3.5-5.0) 02/24/25 11:23 Triglycerides 145.00 mg/dL (0.00-149.00) 02/24/25 11:23 Cholesterol 145.00 mg/dL (0.00-200.00) 02/24/25 11: LDL Cholesterol, Calc 58.1 mg/dL (0.0-131.0) 02/24/25 11: VLDL Cholesterol, Calc 29.00 mg/dL (5.00-40.00) 02/24/25 11: HDL Cholesterol 57.90 mg/dL (40.00-60.00) 02/24/25 11: Cholesterol/HDL Ratio 2.50 Ratio 02/24/25 11: TSH 0.875 mIU/L (0.465-4.680) 02/24/25 11:23 Urine Color Yellow 02/24/25:25 Urine Appearance Clear (Clear) 02/24/25: Urine pH 5.5 (5.0-8.0) 02/24/25 00:25 Ur Specific Bowers 1.026 (1.001-1.035) 02/24/25 00:25 Urine Protein Trace (Negative) H 02/24/25 00:25 Urine Glucose (UA) Negative (Negative) 02/24/25 00:25 Urine Ketones Negative (Negative) 02/24/25 00:25 Urine Blood Negative (Negative) 02/24/25 00:25 Urine Nitrite Negative (Negative) 02/24/25:25 Urine Bilirubin Negative (Negative) 02/24/25:25 Urine Urobilinogen <2.0 mg/dL (<2.0) 02/24/25 00:25 Ur Leukocyte Esterase Negative (Negative) 02/24/25 00:25 Urine Opiates Screen Not Detected (NotDetected) 02/24/25 00:25 Ur Oxycodone Screen Not Detected (NotDetected) 02/24/25 00:25 Urine Methadone Screen Not Detected (NotDetected) 02/24/25 00:25 Ur Barbiturates Screen Not Detected (NotDetected) 02/24/25 00:25 U Tricyclic Antidepress Not Detected (NotDetected) 02/24/25 00:25 Ur Phencyclidine Scrn Not Detected (NotDetected) 02/24/25 00:25 Ur Amphetamines Screen Detected (NotDetected) H 02/24/25 00:25 U Methamphetamines Scrn Detected (NotDetected) H 02/24/25 00:25 U Benzodiazepines Scrn Not Detected (NotDetected) 02/24/25 00:25 Urine Cocaine Screen Not Detected (NotDetected) 02/24/25 00:25 U Marijuana (THC) Screen Not Detected (NotDetected) 02/24/25 00:25 Influenza Type A (PCR) Not Detected (Not Detectd) 02/23/25 23:02 Influenza Type B (PCR) Not Detected (Not Detectd) 02/23/25 23:02 RSV (PCR) Not Detected (Not Detectd) 02/23/25 23:02 SARS-CoV-2 (PCR) Not Detected (Not Detectd) 02/23/25 23:02 Vital Signs Temp 98.6 F 03/01/25 09:00 Pulse 125 H 03/01/25 09:00 Resp 18 02/28/25 20:42 BP 166/81 03/01/25 09:00 Pulse Ox 96 03/01/25 09:00 FiO2 Patient Condition at Discharge: Stable Plan - Discharge Summary Discharge Rx Participant: Yes New Discharge Prescriptions: New Sertraline [Zoloft] 50 mg PO HS 30 Days #30 tab Nicotine 14Mg/24Hr Patch [Habitrol] 1 patch TRANSDERM DAILY 14 Days #14 patch Paliperidone [Invega] 3 mg PO HS 30 Days #30 tab Ibuprofen [Motrin] 600 mg PO Q6HR PRN tab PRN Reason: Moderate Pain (Scale 4 To 6) Discontinued QUEtiapine [SEROquel] 100 mg PO HS 30 Days tab Discharge Medication List Ibuprofen [Motrin] 600 mg PO Q6HR PRN tab 03/01/25 [Rx] Nicotine 14Mg/24Hr Patch [Habitrol] 1 patch TRANSDERM DAILY 14 Days #14 patch 03/01/25 [Rx] Paliperidone [Invega] 3 mg PO HS 30 Days #30 tab 03/01/25 [Rx] Sertraline [Zoloft] 50 mg PO HS 30 Days #30 tab 03/01/25 [Rx] Follow up Appointment(s)/Referral(s): [facility]Other[facility] - [facility] Week [facility] [Outside] - 03/04/25 10:00 am (03/04 at 10am with Kashmir Doyle 03/09 at 9:30am with Leticia Neal NP) Patient Instructions/Handouts: How to Stop Smoking (DC), Psychotic Disorder (DC) Activity/Diet/Wound Care/Special Instructions: [facility] Discharge Info Avoid the use of street drugs and alcohol. Take all medications as prescribed. When you are in need of refills on your medications, please contact your outpatient medical provider and/or outpatient psychiatrist. Please go to your scheduled outpatient appointments for aftercare treatment. If symptoms return or become worse, call the crisis line at or and/or visit the nearest emergency room for assistance. [place] Suicide and Crisis Lifeline - call or text 611 Discharge Disposition: HOME SELF-CARE
== END 2025-03-01 12:33 | disposition home or self-care (01) | DRG 750 ==
LOC: EC 20:55 → 3MHU 02-24 01:40
PROVIDERS: ADMIT Psychiatry & Neurology Psychiatry; ATTEND Psychiatry & Neurology Psychiatry
DX: F29 Unspecified psychosis not due to a substance or known physiological condition (principal); F15.10 Other stimulant abuse, uncomplicated; F10.10 Alcohol abuse, uncomplicated; R45.851 Suicidal ideations; F17.200 Nicotine dependence, unspecified, uncomplicated; F41.9 Anxiety disorder, unspecified; F31.9 Bipolar disorder, unspecified; Z79.899 Other long term (current) drug therapy; Z81.8 Family history of other mental and behavioral disorders
CPT/HCPCS: 80053; 80061; 80306; 81003; 82075; 83036; 84443; 85025; 87636; 99285